=== PATIENT | male | born 1995 | race Caucasian/White ===

== ENCOUNTER 2018-09-23 14:32 | Emergency (ER) | payer OTHER ==
[~2018-09-23] VITALS: Ht 193 cm; Wt 63.5 kg
[2018-09-23 14:32] VITALS: BP 139/91
[2018-09-23] MEDS ORDERED: BACITRACIN ZINC OINT PACKET 1 EA PACKET TP ONE ×2 (15:00→16:35)
[2018-09-23] MEDS ORDERED: TDAP [DIPH/PERTUSSIS/TET] 0.5 ML VIAL IM ONE ×2 (15:00→15:42)
[2018-09-23] MEDS ORDERED: LIDOCAINE 1% INJ 50 ML MDV IJ ONE (15:00)
[2018-09-23] MEDS ORDERED: LIDOCAINE HCL/MPF 1% 30 ML VIAL IJ ONE (15:02)
== END 2018-09-23 16:57 | disposition home or self-care (01) ==
LOC: ER 14:35
DX: S51.812A Laceration without foreign body of left forearm, initial encounter (principal); Z60.2 Problems related to living alone; W54.0XXA Bitten by dog, initial encounter; Y93.89 Activity, other specified; Y92.89 Other specified places as the place of occurrence of the external cause; Y99.0 Civilian activity done for income or pay
CPT/HCPCS: 12002; 90471; 90715; 99283; A6402; A6403; J3490